=== PATIENT | female | born 1955 | race Caucasian/White ===

== ENCOUNTER 2018-11-03 09:59 | Emergency (ER) | payer BC ==
[~2018-11-03] VITALS: Ht 165.1 cm; Wt 72.8 kg
[2018-11-03 10:09] VITALS: Ht 165.1 cm; Wt 72.8 kg
[2018-11-03] MEDS ORDERED: SOD CHLORIDE 0.9% 1,000 ML IV STA (10:25)
[2018-11-03] MEDS ORDERED: morphine 4 MG/ML VIAL IV STA (10:25)
[2018-11-03] MEDS ORDERED: ONDANSETRON 4 MG INJ IV STA (10:25)
[2018-11-03] MEDS ORDERED: LOSA100T15 PO (11:12)
[2018-11-03] MEDS ORDERED: MELO15TA30 PO (11:12)
[2018-11-03] MEDS ORDERED: OXYB10TA6 PO (11:13)
[2018-11-03] MEDS ORDERED: BIMA2.5D BOTH EYES (11:14)
[2018-11-03] MEDS ORDERED: TIMO5DRO30 BOTH EYES (11:14)
[2018-11-03] MEDS ORDERED: OMEG-144 PO (11:45)
[2018-11-03] MEDS ORDERED: DICY10CA40 PO (13:14)
[2018-11-03] MEDS ORDERED: CIPR500T4 PO (13:14)
[2018-11-03] MEDS ORDERED: METR500T PO (13:14)
[2018-11-03] MEDS ORDERED: metroNIDAZOLE 500 MG TAB PO ONE (13:30)
[2018-11-03] MEDS ORDERED: CIPROFLOXACIN 500 MG TAB PO ONE (13:30)
--- NOTE | 2018-11-03 13:34 | ERD ---
ER Documentation Chief Complaint Chief Complaint left lower quadrant pain & diarrheax3 days denies vomitting, HPI 62-year-old female presents the emergency room with approximately 1 to 2 days of symptoms including left lower quadrant abdominal pain. The pain is approximately 5 out of 10, cramping and occasionally sharp. Possibly having bowel movements more frequently. No fevers or chills. No nausea, no vomiting. She denies any dysuria urgency or frequency, no flank pain. ROS All systems reviewed and are negative except as per history of present illness. Medications Home Meds Active Scripts Metronidazole* (Flagyl*) 500 Mg Tablet, 500 MG PO TID for 7 Days, TAB Prov:MAYNOR DEUTSCH MD 11/03/18 Ciprofloxacin Hcl* (Ciprofloxacin Hcl*) 500 Mg Tablet, 500 MG PO BID for 7 Days, TAB Prov:MAYNOR DEUTSCH MD 11/03/18 Dicyclomine HCl (Dicyclomine HCl) 10 Mg Capsule, 10 MG PO TID PRN for ABDOMINAL CRAMPING, #20 CAP Prov:MAYNOR DEUTSCH MD 11/03/18 Reported Medications [place]-3/Dha/Epa/Fish Oil (Fish Oil 500 mg Softgel) 1 Each Capsule, 1 EACH PO DAILY, CAP 11/03/18 Timolol Maleate* (Timoptic*) 0.5%-5ml Opht, 1 DROP BOTH EYES BID, #1 EA 11/03/18 Bimatoprost* (Lumigan*) 0.01%-2.5 Ml Opht Drops, 1 DROP BOTH EYES HS, EA 11/03/18 Oxybutynin Chloride* (Ditropan* XL) 10 Mg Tab.er.24, 10 MG PO DAILY, TAB.SA 11/03/18 Meloxicam* (Mobic*) 15 Mg Tablet, 15 MG PO DAILY, #30 TAB 11/03/18 Losartan Potassium* (Losartan Potassium*) 100 Mg Tablet, 50 MG PO DAILY, TAB 11/03/18 Allergies Allergies: Coded Allergies: No Known Allergy (Unverified , 11/03/18) PMhx/Soc History of Surgery: Yes (HYSTERECTOMY ) Anesthesia Reaction: No Hx Neurological Disorder: No Hx Respiratory Disorders: No Hx Cardiac Disorders: Yes (HTN) Hx Psychiatric Problems: No Hx Miscellaneous Medical Probl: No Hx Alcohol Use: No Hx Substance Use: No Hx Tobacco Use: No (QUIT 10 YRS AGO ) Smoking Status: Former smoker FmHx Family History: No diabetes Physical Exam Vitals Vital Signs Date Temp Pulse Resp B/P (MAP) Pulse Ox O2 O2 Flow FiO2 Time Delivery Rate 11/03/18 86 18 120/57 98 Room Air 12:00 (78) 11/03/18 85 18 119/71 96 Room Air 10:47 (87) 11/03/18 97.6 92 18 150/70 98 10:09 (96) Physical Exam General: Well developed, well nourished, no acute distress Head: Normocephalic, atraumatic. Eyes: Pupils equally reactive, EOM intact ENT: Moist mucous membranes Neck: Supple, no lymphadenopathy Respiratory: Lungs clear bilaterally, no distress Cardiovascular: RRR, no murmurs, rubs, or gallops Abdominal: Focal tenderness to left lower quadrant without rebound or guarding, no peritonitis. No tenderness to McBurney's point : Deferred MSK: No edema, no unilateral swelling, 5/5 strength Neurologic: Alert and oriented, moving all extremities, normal speech, no focal weakness, no cerebellar signs Skin: No rash Psych: Normal mood Result Diagram: 11/03/18 1045 11/03/18 1045 Results 24 hrs Laboratory Tests Test 11/03/18 10:40 11/03/18 10:45 Urine Color YELLOW Urine Clarity CLEAR Urine pH 9.0 Urine Specific [place] 1.015 Urine Ketones NEGATIVE mg/dL Urine Nitrite NEGATIVE mg/dL Urine Bilirubin NEGATIVE mg/dL Urine Urobilinogen NEGATIVE mg/dL Urine Leukocyte Esterase NEGATIVE Jovany/ul Urine Microscopic RBC 7 /HPF Urine Microscopic WBC 1 /HPF Urine Mucus FEW /HPF Urine Hemoglobin 1+ mg/dL Urine Glucose NEGATIVE mg/dL Urine Total Protein 2+ mg/dl White Blood Count 11.0 10^3/ul Red Blood Count 4.22 10^6/ul Hemoglobin 12.9 g/dl Hematocrit 38.3 % Mean Corpuscular Volume 90.8 fl Mean Corpuscular Hemoglobin 30.6 pg Mean Corpuscular Hemoglobin Concent 33.7 g/dl Red Cell Distribution Width 11.8 % Platelet Count 264 10^3/UL Mean Platelet Volume 9.3 fl Immature Granulocytes % 0.400 % Neutrophils % 74.9 % Lymphocytes % 16.8 % Monocytes % 7.5 % Eosinophils % 0.1 % Basophils % 0.3 % Nucleated Red Blood Cells % 0.0 /100WBC Immature Granulocytes # 0.040 10^3/ul Neutrophils # 8.3 10^3/ul Lymphocytes # 1.9 10^3/ul Monocytes # 0.8 10^3/ul Eosinophils # 0.0 10^3/ul Basophils # 0.0 10^3/ul Nucleated Red Blood Cells # 0.0 10^3/ul Sodium Level 140 mmol/L Potassium Level 4.2 mmol/L Chloride Level 104 mmol/L Carbon Dioxide Level 27 mmol/L Anion Gap 9 Blood Urea Nitrogen 11 mg/dl Creatinine 0.49 mg/dl Est Glomerular Filtrat Rate mL/min > 60 mL/min Glucose Level 109 mg/dl Calcium Level 9.3 mg/dl Total Bilirubin 0.5 mg/dl Direct Bilirubin 0.00 mg/dl Indirect Bilirubin 0.5 mg/dl Aspartate Amino Transf (AST/SGOT) 14 IU/L Alanine Aminotransferase (ALT/SGPT) 14 IU/L Alkaline Phosphatase 84 IU/L Total Protein 7.7 g/dl Albumin 4.2 g/dl Globulin 3.50 g/dl Albumin/Globulin Ratio 1.20 Lipase 24 U/L Current Medications Medications Dose Sig/Maurizio Start Time Status Last (Trade) Ordered Route PRN Stop Time Admin Dose Reason Admin Sodium 1,000 ml @ Q1H STAT 11/03/18 DC 11/03/18 Chloride 1,000 mls/hr IV 10:25 11/03/18 10:51 11:24 Morphine 4 mg ONCE STAT 11/03/18 DC 11/03/18 Sulfate IV 10:25 11/03/18 10:52 (morphine) 10:26 Ondansetron 4 mg ONCE STAT 11/03/18 DC 11/03/18 HCl (Zofran IV 10:25 11/03/18 10:51 Inj) 10:26 500 mg ONCE ONCE 11/03/18 Ciprofloxacin PO 13:30 11/03/18 (Cipro) 13:31 500 mg ONCE ONCE 11/03/18 Metronidazole PO 13:30 11/03/18 (Flagyl) 13:31 Procedures/MDM EKG, MONITORS, & DIAGNOSTIC IMAGING: CT a/p IMPRESSION: Sigmoid diverticulitis. No abscess or pneumoperitoneum. Hysterectomy. Hepatic cysts. LAB INTERPRETATION: I reviewed the laboratory testing and it shows no evidence of acute process MEDICAL DECISION MAKING: Patient has focal left lower quadrant abdominal pain. Clinical exam concerning for possible acute diverticulitis. Low concern for ovarian process or torsion. Patient will benefit from CT imaging of the pelvis to rule out complications such as perforation or abscess. Lower clinical concern for these processes. ER COURSE: * Patient was given pain control medication with dramatic improvement. She tolerated oral Cipro and Flagyl. The patient can be safely discharged with a trial of oral antibiotics for treatment of uncomplicated acute diverticulitis. * Diet modification education provided CONSULTATION: None DISPOSITION PLAN: The patient does not have an identifiable emergent medical condition that warrants inpatient hospitalization at this time. The patient is deemed safe for discharge with outpatient follow-up. We discussed follow up with the patient's primary care doctor within 24 to 48 hours as needed. We also discussed return to the emergency room for worsening symptoms or worsening condition. Outpatient referral: None required Discharge Medications: Bentyl, Cipro, Flagyl Departure Diagnosis: Primary Impression: Acute diverticulitis Condition: Stable Patient Instructions: Diverticulitis Referrals: [facility] YOU HAVE RECEIVED A MEDICAL SCREENING EXAM AND THE RESULTS INDICATE THAT YOU DO NOT HAVE A CONDITION THAT REQUIRES URGENT TREATMENT IN THE EMERGENCY DEPARTMENT. FURTHER EVALUATION AND TREATMENT OF YOUR CONDITION CAN WAIT UNTIL YOU ARE SEEN IN YOUR DOCTORS OFFICE WITHIN THE NEXT 1-2 DAYS. IT IS YOUR RESPONSIBILITY TO MAKE AN APPOINTMENT FOR FOLOW-UP CARE. IF YOU HAVE A PRIMARY DOCTOR --you should call your primary doctor and schedule an appointment IF YOU DO NOT HAVE A PRIMARY DOCTOR YOU CAN CALL OUR PHYSICIAN REFERRAL HOTLINE AT IF YOU CAN NOT AFFORD TO SEE A PHYSICIAN YOU CAN CHOSE FROM THE FOLLOWING [facility] [address] [facility] [address] [facility] [facility] [address] [facility] [address] [facility] [address] [facility]. [facility]. [address] [facility]. [facility] YOU HAVE RECEIVED A MEDICAL SCREENING EXAM AND THE RESULTS INDICATE THAT YOU DO NOT HAVE A CONDITION THAT REQUIRES URGENT TREATMENT IN THE EMERGENCY DEPARTMENT. FURTHER EVALUATION AND TREATMENT OF YOUR CONDITION CAN WAIT UNTIL YOU ARE SEEN IN YOUR DOCTORS OFFICE WITHIN THE NEXT 1-2 DAYS. IT IS YOUR RESPONSIBILITY TO MAKE AN APPOINTMENT FOR FOLOW-UP CARE. IF YOU HAVE A PRIMARY DOCTOR --you should call your primary doctor and schedule and appointment IF YOU DO NOT HAVE A PRIMARY DOCTOR YOU CAN CALL OUR PHYSICIAN REFERRAL HOTLINE AT . IF YOU CAN NOT AFFORD TO SEE A PHYSICIAN YOU CAN CHOSE FROM THE FOLLOWING [facility] INSTITUTIONS: [facility] [address] [place] [address] [facility] [address] [place] [address] [facility] + [facility] [address] [place] [address] Additional Instructions: Call your primary care doctor TOMORROW for an appointment during the next 1 WEEK.Tell the trade union secretary that you were referred from this facility.See the doctor sooner or return here if your condition worsens before your appointment time. MAYNOR DEUTSCH MD Nov 03, 2018 13:34
[2018-11-03 13:45] VITALS: BP 122/57; PULSE 86; RESP 18
== END 2018-11-03 13:52 | disposition home or self-care (01) ==
LOC: E/R 09:59
DX: K57.32 Diverticulitis of large intestine without perforation or abscess without bleeding (principal); I10 Essential (primary) hypertension; Z87.891 Personal history of nicotine dependence
CPT/HCPCS: 36415; 74176; 80053; 81001; 83690; 85025; 96374; 96375; 99285; J2270; J2405; J7030

== ENCOUNTER 2018-11-14 12:53 | Inpatient (IN) | payer BC ==
[~2018-11-14] VITALS: Ht 157.5 cm; Wt 72.9 kg
[~2018-11-14 12:53] MED LIST: BIMA2.5D BOTH EYES; CIPR500T4 PO; DICY10CA40 PO; LOSA100T15 PO; MELO15TA30 PO; METR500T PO; OMEG-144 PO; OXYB10TA6 PO; TIMO5DRO30 BOTH EYES
[2018-11-14] MEDS ORDERED: SOD CHLORIDE 0.9% 1,000 ML IV STA (13:15)
[2018-11-14] MEDS ORDERED: ONDANSETRON 4 MG INJ IV STA (13:15)
[2018-11-14] MEDS ORDERED: morphine 4 MG/ML VIAL IV STA (13:15)
--- NOTE | 2018-11-14 13:24 | ERD ---
ER Documentation Chief Complaint Chief Complaint dysuria x1week with generalized weakness HPI This is a very pleasant 62-year-old female that presents to the emergency department complaining of severe pain in the left lower quadrant that has been intermittent for roughly 2 weeks. Patient was initially seen at [facility] on November 03, 2018, 2 weeks prior to arrival. At that time the patient had a CT scan that indicated acute diverticulitis. The patient was sent home with ciprofloxacin and Flagyl. She indicates she has completed the course of antibiotics. She states however that the pain has significantly worsened in the past 24 hours. She states the pain is 10 out of 10 in intensity. The pain is in the left lower quadrant radiates to her back. She had a tactile fever with no shaking and chills. She has been taking Bentyl but this does not improve her pain. She complains of frequency and urgency and dysuria. She denies any hematuria. She had no shortness of breath at rest or exertion. She denies any chest pain. There is no alleviating or exacerbating factors to the pain. ROS All systems reviewed and are negative except as per history of present illness. Medications Home Meds Active Scripts Metronidazole* (Flagyl*) 500 Mg Tablet, 500 MG PO TID for 7 Days, TAB Prov:MAYNOR DEUTSCH MD 11/03/18 Ciprofloxacin Hcl* (Ciprofloxacin Hcl*) 500 Mg Tablet, 500 MG PO BID for 7 Days, TAB Prov:MAYNOR DEUTSCH MD 11/03/18 Dicyclomine HCl (Dicyclomine HCl) 10 Mg Capsule, 10 MG PO TID PRN for ABDOMINAL CRAMPING, #20 CAP Prov:MAYNOR DEUTSCH MD 11/03/18 Reported Medications [place]-3/Dha/Epa/Fish Oil (Fish Oil 500 mg Softgel) 1 Each Capsule, 1 EACH PO DAILY, CAP 11/03/18 Timolol Maleate* (Timoptic*) 0.5%-5ml Opht, 1 DROP BOTH EYES BID, #1 EA 11/03/18 Bimatoprost* (Lumigan*) 0.01%-2.5 Ml Opht Drops, 1 DROP BOTH EYES HS, EA 11/03/18 Oxybutynin Chloride* (Ditropan* XL) 10 Mg Tab.er.24, 10 MG PO DAILY, TAB.SA 11/03/18 Meloxicam* (Mobic*) 15 Mg Tablet, 15 MG PO DAILY, #30 TAB 11/03/18 Losartan Potassium* (Losartan Potassium*) 100 Mg Tablet, 50 MG PO DAILY, TAB 11/03/18 Allergies Allergies: Coded Allergies: No Known Allergy (Unverified , 11/03/18) PMhx/Soc History of Surgery: Yes (HYSTERECTOMY ) Anesthesia Reaction: No Hx Neurological Disorder: No Hx Respiratory Disorders: No Hx Cardiac Disorders: Yes (HTN) Hx Psychiatric Problems: No Hx Miscellaneous Medical Probl: No Hx Alcohol Use: No Hx Substance Use: No Hx Tobacco Use: No (QUIT 10 YRS AGO ) Physical Exam Vitals Vital Signs Date Temp Pulse Resp B/P (MAP) Pulse Ox O2 O2 Flow FiO2 Time Delivery Rate 11/14/18 97.3 75 22 148/56 99 12:59 (86) Physical Exam Constitutional:Well-developed. Well-nourished. Patient tearful and appeared to be in a significant amount discomfort secondary to pain HEENT:Normocephalic. Atraumatic.Pupils were equal round reactive to light. Moist mucous membranes. Respiratory: Not using accessory muscles of respiration.Lungs were clear to auscultation bilaterally. No rhonchi. No rales. No wheezing. Cardiovascular: Regular rate regular rhythm.No murmurs. No rubs were appreciated.S1, S2 normal. Distal pulses are palpable 2+ bilaterally. GI: Abdomen was soft. Left lower quadrant tenderness.. Non Distended. No pulsatile abdominal masses or bruits. No rebound. Voluntary guarding. Bowel sounds were present and normal. Skin: No petechia, no purpura. No lesions on the palms or the soles of the feet. No maculopapular rash. NEURO: Patient was alert, awake, orientated x3.No facial droop. Gait observed and normal with no ataxia.Speech had regular rate and rhythm. No focal neurological deficits. Results 24 hrs Current Medications Medications Dose Sig/Maurizio Start Time Status Last (Trade) Ordered Route PRN Stop Time Admin Dose Reason Admin Sodium 1,000 ml @ Q1H STAT 11/14/18 Chloride 1,000 mls/hr IV 13:15 11/14/18 14:14 Morphine 4 mg ONCE STAT 11/14/18 DC Sulfate IV 13:15 (morphine) 11/14/18 13:16 Ondansetron 4 mg ONCE STAT 11/14/18 DC HCl (Zofran IV 13:15 Inj) 11/14/18 13:16 Fluconazole 100 mg ONCE ONCE 11/14/18 (Diflucan) PO 13:30 11/14/18 13:31 Procedures/MDM This patient presented to the emergency department with abdominal pain and was seen and evaluated by myself. My differential diagnosis included but was not limited to abdominal aortic aneurysm, appendicitis, pancreatitis, perforated peptic ulcer, perforated viscus, Boerhaave's syndrome or visceral pain such as diverticulitis, DKA, esophagitis, hepatitis or bowel obstruction. The patient was placed on a technical support assistant, continuous pulse oximetry, and IV access was established by nursing staff. The patient was given intravenous morphine and Zofran for analgesic control. Given the patient's symptoms voluntary guarding and persistent pain in the left lower quadrant despite completion of oral antibiotics at home for diverticulitis I did feel that the patient required a repeat CT scan as there was a high suspicion for perforation. Departure Diagnosis: Primary Impression: Diverticulitis Condition: PHOENIX Montero MD Nov 14, 2018 13:24
[2018-11-14] MEDS ORDERED: FLUCONAZOLE 100 MG TAB PO ONE (13:30)
[2018-11-14] MEDS ORDERED: SOD CHLORIDE 0.9% 100 ML ONE (14:32)
[2018-11-14] MEDS ORDERED: IOHEXOL 300MG/ML 150 ML BTL ONE (14:32)
[2018-11-14] MEDS ORDERED: NACL 0.9% 3 ML SYG IV SCH (16:30)
[2018-11-14] MEDS ORDERED: ACETAMINOPHEN 325 MG TAB PO PRN (16:30)
[2018-11-14] MEDS ORDERED: ONDANSETRON 4 MG INJ IV PRN (16:30)
[2018-11-14] MEDS ORDERED: HYDROmorphONE 0.5 MG/0.5 ML SYG IV PRN (16:30)
[2018-11-14] MEDS ORDERED: AMPICILLIN/SULB 3 GM/NS (PMX) 100 ML IVPB ONE (16:30)
[2018-11-14] MEDS: MEROPENEM 1 GM/50ML(PMX) 50 ML IVPB SCH ×2 (17:00→21:11)
--- NOTE | 2018-11-14 17:17 | HP ---
Date/Time of Note Date/Time of Note DATE: 11/14/18 TIME: 17:15 Assessment/Plan VTE Prophylaxis SCD applied (from Nsg): Yes Pharmacological prophylaxis: heparin Lines/Catheters IV Catheter Type (from Nrsg): Peripheral IV Assessment/Plan Hospital Course 62 yo female with diverticulitis which has not improved as an outpaitnet on ci pro/flagyl - Will given IV merrem for now - Cautious diet - Pain control - Serial abdominal exams Result Diagram: 11/14/18 1330 11/14/18 1326 Results 24hrs Laboratory Tests Test 11/14/18 13:26 11/14/18 13:30 Prothrombin Time 12.6 Prothrombin Time Ratio 1.0 INR International Normalized Ratio 0.93 Activated Partial Thromboplast Time 29.0 Urine Color COLORLESS Urine Clarity CLEAR Urine pH 7.0 Urine Specific [place] 1.004 Urine Ketones NEGATIVE Urine Nitrite NEGATIVE Urine Bilirubin NEGATIVE Urine Urobilinogen NEGATIVE Urine Leukocyte Esterase NEGATIVE Urine Microscopic RBC 0 Urine Microscopic WBC 0 Urine Hemoglobin 1+ H Urine Glucose NEGATIVE Urine Total Protein NEGATIVE Sodium Level 139 Potassium Level 3.9 Chloride Level 105 Carbon Dioxide Level 27 Anion Gap 7 Blood Urea Nitrogen 9 Creatinine 0.46 Est Glomerular Filtrat Rate mL/min > 60 Glucose Level 111 Calcium Level 9.4 Total Bilirubin 0.3 Direct Bilirubin 0.00 Indirect Bilirubin 0.3 Aspartate Amino Transf (AST/SGOT) 21 Alanine Aminotransferase (ALT/SGPT) 19 Alkaline Phosphatase 72 Total Protein 7.3 Albumin 4.1 Globulin 3.20 Albumin/Globulin Ratio 1.28 White Blood Count 6.6 # Red Blood Count 4.55 Hemoglobin 13.7 Hematocrit 41.1 Mean Corpuscular Volume 90.3 Mean Corpuscular Hemoglobin 30.1 Mean Corpuscular Hemoglobin Concent 33.3 Red Cell Distribution Width 12.0 Platelet Count 426 #H Mean Platelet Volume 8.5 Immature Granulocytes % 0.600 H Neutrophils % 66.3 Lymphocytes % 25.5 Monocytes % 6.7 Eosinophils % 0.6 Basophils % 0.3 Nucleated Red Blood Cells % 0.0 Immature Granulocytes # 0.040 H Neutrophils # 4.3 Lymphocytes # 1.7 Monocytes # 0.4 Eosinophils # 0.0 Basophils # 0.0 Nucleated Red Blood Cells # 0.0 HPI/ROS Admit Date/Time Admit Date/Time Hx of Present Illness 62 yo female without significant PMH who presents with abdominal pian Has developed LLQ pain over past few days. Came to ED a couple days ago, diagnosed with diverticulitis and given cipro/flagyl. She has taken these meds without much benfefit. Still feels pain. No change to bowel habits. Eating fine. No fevers/chills. Just LLQ pain ROS Constitutional: no complaints, improved Eyes: no complaints ENT: no complaints Respiratory: no complaints Cardiovascular: no complaints Gastrointestinal: no complaints Genitourinary: no complaints Musculoskeletal: no complaints Skin: no complaints Neurologic: no complaints Endocrine: no complaints Lymphatic: no complaints Psychological: no complaints, nl mood/affect Immunologic: no complaints PMH/Family/Social Past Medical History Medical History: no pertinent history Medications Current Medications Ampicillin Sodium/ Sulbactam Sodium 100 ml @ 100 mls/hr ONCE ONCE IVPB Last administered on 11/14/18at 16:21; Admin Dose 100 MLS/HR; Start 11/14/18 at 16:30; Stop 11/14/18 at 17:29 Ondansetron HCl (Zofran Inj) 4 mg BRIDGE ORDER PRN IV NAUSEA/VOMITING; Start 11/14/18 at 16:30; Stop 11/15/18 at 16:29 Acetaminophen (Tylenol Tab) 650 mg ER BRIDGE PRN PO .MILD PAIN 1-3 OR TEMP; Start 11/14/18 at 16:30; Stop 11/15/18 at 16:29 Meropenem/Sodium Chloride 50 ml @ 100 mls/hr Q8 IVPB Last administered on 11/14/18at 17:00; Admin Dose 100 MLS/HR; Start 11/14/18 at 16:30 IV Flush (NS 3 ml) 3 ml PER PROTOCOL IV ; Start 11/14/18 at 16:30 Hydromorphone HCl (Dilaudid) 0.5 mg Q4H PRN IV .SEVERE PAIN 7-10; Start 11/14/18 at 16:30 Bimatoprost (Lumigan 0.01% Oph) 1 drop HS BOTH EYES ; Start 11/14/18 at 21:00; Status UNV Timolol Maleate (Timoptic 0.5%) 1 drop BID BOTH EYES ; Start 11/14/18 at 21:00; Status UNV Coded Allergies: No Known Allergy (Unverified , 11/14/18) Past Surgical History Past Surgical Hx: no surgical history Social History Alcohol Use: none Smoking Status: Former smoker Drug Use: none Exam/Review of Systems Vital Signs Vitals Vital Signs Date Temp Pulse Resp B/P (MAP) Pulse Ox O2 O2 Flow FiO2 Time Delivery Rate 11/14/18 74 22 127/70 99 16:11 (89) 11/14/18 97.3 12:59 Exam Constitutional: alert, oriented, well developed Psych: no complaints, nl mood/affect Head: normocephalic, atraumatic Eyes: nl conjunctiva, EOMI, nl lids, nl sclera, PERRL ENMT: nl external ears & nose, nl lips & teeth, nl nasal mucosa & septum Neck: supple, non-tender Respiratory: clear to auscultation, normal air movement Cardiovascular: regular rate and rhythm, nl pulses Gastrointestinal: soft, nl liver, spleen, non-tender Musculoskeletal: nl extremities to inspection Extremities: normal pulses Neurological: SWITCHBOARD OPERATOR RECEPTIONIST II-XII intact, nl mental status, nl speech, nl strength Skin: nl turgor; No rash or lesions Lymph: nl lymph nodes KURTIS VELASQUEZ MD Nov 14, 2018 17:17
[2018-11-14 18:05] VITALS: Ht 157.5 cm; Wt 72.9 kg
[2018-11-14 18:06] VITALS: BP 115/56; PULSE 67; RESP 18
[2018-11-14 20:00] VITALS: BP 126/60; PULSE 67; RESP 18
[2018-11-14] MEDS: TIMOLOL 0.5% 5 ML OPH BOTH EYES SCH (21:00)
[2018-11-14] MEDS: LATANOPROST 0.005% 2.5 ML OPH BOTH EYES SCH ×2 (21:27→21:28)
[2018-11-15 02:00] VITALS: BP 103/51; PULSE 62; RESP 18
[2018-11-15] MEDS: MEROPENEM 1 GM/50ML(PMX) 50 ML IVPB SCH ×2 (05:16→13:39)
[2018-11-15 07:33] VITALS: BP 114/70; PULSE 85; RESP 16
[2018-11-15] MEDS: TIMOLOL 0.5% 5 ML OPH BOTH EYES SCH (08:40)
[2018-11-15] MEDS ORDERED: ONDANSETRON 4 MG INJ IV PRN ×2 (10:00)
[2018-11-15] MEDS ORDERED: ACETAMINOPHEN 500 MG TAB PO PRN (14:00)
[2018-11-15] MEDS ORDERED: ACETAMINOPHEN 325 MG TAB ONE (14:06)
[2018-11-15 14:13] VITALS: BP 109/59; PULSE 88; RESP 16
[2018-11-15] MEDS ORDERED: AMOX1TAB10 PO (14:40)
--- NOTE | 2018-11-15 14:41 | DS ---
Date/Time of Note Date/Time of Note DATE: 11/15/18 TIME: 14:40 Discharge Summary Admission/Discharge Info Admit Date/Time Nov 14, 2018 at 16:28 Discharge Date/Time Discharge Diagnosis Diverticulitis Patient Condition: Stable Hx of Present Illness 62 yo female without significant PMH who presents with abdominal pian Has developed LLQ pain over past few days. Came to ED a couple days ago, diagnosed with diverticulitis and given cipro/flagyl. She has taken these meds without much benfefit. Still feels pain. No change to bowel habits. Eating fine. No fevers/chills. Just LLQ pain Hospital Course 62 yo female with diverticulitis which has not improved as an outpaitnet on cipro/flagyl She was given IV merrem with significant improvement in symptoms. She was prescribed 5 days of augmentin to complete as an outaptient Home Meds Reported Medications [place]-3/Dha/Epa/Fish Oil (Fish Oil 500 mg Softgel) 1 Each Capsule, 1 EACH PO DAILY, CAP 11/03/18 Timolol Maleate* (Timoptic*) 0.5%-5ml Opht, 1 DROP BOTH EYES BID, #1 EA 11/03/18 Bimatoprost* (Lumigan*) 0.01%-2.5 Ml Opht Drops, 1 DROP BOTH EYES HS, EA 11/03/18 Oxybutynin Chloride* (Ditropan* XL) 10 Mg Tab.er.24, 10 MG PO DAILY, TAB.SA 11/03/18 Meloxicam* (Mobic*) 15 Mg Tablet, 15 MG PO DAILY, #30 TAB 11/03/18 Losartan Potassium* (Losartan Potassium*) 100 Mg Tablet, 50 MG PO DAILY, TAB 11/03/18 Discontinued Scripts Metronidazole* (Flagyl*) 500 Mg Tablet, 500 MG PO TID for 7 Days, TAB Prov:MAYNOR DEUTSCH MD 11/03/18 Ciprofloxacin Hcl* (Ciprofloxacin Hcl*) 500 Mg Tablet, 500 MG PO BID for 7 Days, TAB Prov:MAYNOR DEUTSCH MD 11/03/18 Dicyclomine HCl (Dicyclomine HCl) 10 Mg Capsule, 10 MG PO TID PRN for ABDOMINAL CRAMPING, #20 CAP Prov:MAYNOR DEUTSCH MD 11/03/18 Primary Care Provider Eliceo Corbin MD Pending Labs Laboratory Tests Test 11/15/18 04:52 White Blood Count 5.9 10^3/ul (4.8-10.8) Red Blood Count 4.08 10^6/ul (4.20-5.40) Hemoglobin 12.5 g/dl (12.0-16.0) Hematocrit 37.6 % (37.0-47.0) Mean Corpuscular Volume 92.2 fl (82.0-101.0) Mean Corpuscular Hemoglobin 30.6 pg (29.0-33.0) Mean Corpuscular Hemoglobin Concent 33.2 g/dl (32.0-37.0) Red Cell Distribution Width 12.2 % (11.5-14.5) Platelet Count 374 10^3/UL (140-415) Mean Platelet Volume 8.9 fl (7.4-10.4) Immature Granulocytes % 0.300 % (0.001-0.429) Neutrophils % 50.6 % (39.0-77.0) Lymphocytes % 41.4 % (15.0-51.0) Monocytes % 6.0 % (0.0-11.0) Eosinophils % 1.2 % (0.0-7.0) Basophils % 0.5 % (0.0-2.0) Nucleated Red Blood Cells % 0.0 /100WBC (0.0-0.0) Immature Granulocytes # 0.020 10^3/ul (0.0-0.031) Neutrophils # 3.0 10^3/ul (1.6-7.5) Lymphocytes # 2.4 10^3/ul (0.8-2.9) Monocytes # 0.4 10^3/ul (0.3-0.9) Eosinophils # 0.1 10^3/ul (0.0-0.5) Basophils # 0.0 10^3/ul (0.0-0.1) Nucleated Red Blood Cells # 0.0 10^3/ul (0.0-0.0) Sodium Level 140 mmol/L (135-144) Potassium Level 4.2 mmol/L (3.5-5.1) Chloride Level 107 mmol/L (97-110) Carbon Dioxide Level 27 mmol/L (21-31) Anion Gap 6 (5-13) Blood Urea Nitrogen 10 mg/dl (7-20) Creatinine 0.47 mg/dl (0.44-1.00) Est Glomerular Filtrat Rate mL/min > 60 mL/min (>60) Glucose Level 96 mg/dl (70-220) Hemoglobin A1c 5.9 % (0-5.9) Calcium Level 9.0 mg/dl (8.4-10.2) Total Bilirubin 0.3 mg/dl (0.2-1.3) Direct Bilirubin 0.00 mg/dl (0.00-0.20) Indirect Bilirubin 0.3 mg/dl (0-1.1) Aspartate Amino Transf (AST/SGOT) 20 IU/L (15-46) Alanine Aminotransferase (ALT/SGPT) 22 IU/L (13-69) Alkaline Phosphatase 60 IU/L (42-121) Total Protein 6.4 g/dl (6.1-8.1) Albumin 3.3 g/dl (3.3-4.9) Globulin 3.10 g/dl (1.3-3.2) Albumin/Globulin Ratio 1.06 KURTIS VELASQUEZ MD Nov 15, 2018 14:41
== END 2018-11-15 16:45 | disposition home or self-care (01) | DRG 392 ==
LOC: FTE 12:53 → SUATTDRO 16:28 → PP2 16:28
PROVIDERS: ADMIT Internal Medicine; ATTEND Internal Medicine
DX: K57.92 Diverticulitis of intestine, part unspecified, without perforation or abscess without bleeding (principal)
CPT/HCPCS: 74177; 80053; 81001; 83036; 85025; 85610; 85730; 87086; 96374; 96375; J0295; J2185; J2270; J2405; J7030; Q9967